=== PATIENT | male | born 1960 | race Caucasian/White ===

== ENCOUNTER 2022-01-11 13:04 | Observation (INO) ==
[2022-01-11 14:24] LABS: Hematocrit (blood only) 38.6 % (40.1-51.0); Hemoglobin 12.6 g/dl (14.0-18.0); Mean Corpuscular Hemoglobin 30.3 pg (25.0-34.0); Mean Corpuscular Hgb Conc 32.6 g/dL (32.0-36.0); Mean Corpuscular Volume 92.8 fL (80.0-100.0); Platelet Count 85 K/uL (130-400); RDW Coefficient of Variation 15.1 % (11.5-14.5); RDW Standard Deviation 51.3 fL (36.4-46.3); Red Blood Count 4.16 M/uL (4.63-6.08); White Blood Count 10.11 K/ul (4.8-10.8)
[2022-01-11 15:01] LABS: Alanine Aminotransferase 18 U/L (7-52); Albumin Globulin Ratio 1.2 (0.9-2); Albumin Level 3.8 gm/dl (3.4-5.0); Alkaline Phosphatase 79 U/L (34-104); Anion Gap 7 (3-11); BUN Creatinine Ratio 15.2 (10-20); Bilirubin,Total 1.2 mg/dl (0.2-1.0); Blood Urea Nitrogen 12 mg/dl (6-23); Calcium 9.4 mg/dl (8.5-10.1); Carbon Dioxide 25 mmol/L (21-32); Chloride 104 mmol/L (98-107); Creatinine Clr Calc Pharmacy 131.2 ml/min; Est GFR (African American) 113.9 ml/min; Est GFR (Non-African American) 98.3 ml/min; Globulin 3.3 gm/dl (2.5-4.0); Glucose 86 mg/dl (70-99(Fasting)); Lipase 31 U/L (11-82); Sodium 136 mmol/L (136-145); Total Protein 7.1 gm/dl (6.0-8.3)
[2022-01-11 15:39] LABS: Potassium 3.8 mmol/L (3.5-5.1)
[2022-01-11 15:49] LABS: Eosinophils % (manual) 1 %; Lymphocytes # (manual) 6.98 K/uL (1.2-3.4); Lymphocytes % (manual) 69 %; Monocytes % (manual) 2 %; Neutrophils % (manual) 3 %; Ovalocytes 1+; Reactive Lymphocytes # (manual) 2.63 K/uL; Reactive Lymphocytes % (manual) 26 %; Tear Drop Cells 1+
--- NOTE | 2022-01-11 16:49 | XRay Report ---
XR chest 1V portable CLINICAL HISTORY: abd pain. Evaluate lung bases. COMPARISON STUDY: No previous studies for comparison. TECHNIQUE: 1 view of the chest FINDINGS: Single frontal view of the chest demonstrates the cardiomediastinal silhouette to be within normal li mits. There is a decreased inspiratory effort with elevation of the hemidiaphragms and crowding of th e bronchovascular markings at the lung bases and centrally. The lungs are clear of alveolar opacities . There is no evidence for pleural effusion. There is no evidence for vascular congestion. There is n o acute osseous pathology. IMPRESSION: 1. There is a decreased inspiratory effort with otherwise no acute chest disease. ACT 112: Negative or not required by law. Electronically signed by: Aroldo Gooden M.D. 01/11/2022 4:47 PM
--- NOTE | 2022-01-11 17:51 | Ultrasound Report ---
ABDOMINAL ULTRASOUND, RIGHT UPPER QUADRANT HISTORY: Right upper quadrant abdominal pain.. COMPARISON: None. FINDINGS: Pancreas: The pancreatic tail is obscured by overlying bowel gas. The remaining portions of the pancr eas are within normal limits. Liver: Heterogeneous echotexture. No hepatic masses. 20.5 cm in length. Subtle nodular contour to the liver suggestive of early cirrhosis. Gallbladder: The gallbladder is contracted. Diffuse gallbladder wall thickening most pronounced along the hepatic surface measuring 8 mm. There is a small stone identified within the gallbladder. Negati ve sonographic Moya sign. CBD: 4 mm. Right kidney: No hydronephrosis. Miscellaneous: Multiple mildly enlarged periportal/peripancreatic lymph nodes measuring up to 2.9 x 2 .8 x 1.8 cm. IMPRESSION: 1. Enlarged and heterogeneous liver demonstrating a subtle nodular contour consistent with cirrhosis. No hepatic masses. 2. Multiple mildly enlarged periportal/peripancreatic lymph nodes. This is nonspecific but likely due to the patient's underlying cirrhosis. 6 month follow-up recommended to ensure stability. 3. Cholelithiasis. Diffuse gallbladder wall thickening is most likely due to the underlying hepatocel lular disease. ACT 112: Negative or not required by law. Electronically signed by: Arnaldo Crouch M.D. 01/11/2022 5:48 PM
[2022-01-11] MEDS ORDERED: OPTIRAY 320 125ml IV ONE (19:03)
--- NOTE | 2022-01-11 19:30 | CT Scan Report ---
CHEST CTA for PULMONARY ARTERIES CT DOSE: HISTORY: right rib/ruq pain TECHNIQUE: Multiaxial CT images of the chest were performed following the intravenous administration of contrast to evaluate the pulmonary arteries. Maximal intensity projection images were also obtaine d. A dose lowering technique was utilized adhering to the principles of ALARA. COMPARISON STUDY: None. FINDINGS: Normal caliber thoracic aorta with no evidence for dissection. The heart is normal in size. Trace right pleural effusion. No pericardial effusion. Normal esophagus. Suboptimal opacification of the pulmonary arterial tree due to the timing of contrast. However, no definite filling defects with in the pulmonary arteries to suggest a pulmonary embolus. No suspicious lytic or blastic osseous lesi ons. Old, healed right fourth and fifth rib fractures. No acute fractures identified within the chest . The central airways are patent. No pneumothorax. A 6 mm nodular density within the left lower lobe on image 145 appears to represent an impacted bronchus. No focal lung consolidations to suggest pneum onia. There is a 4 mm subpleural nodule within the right upper lobe on image 205. Hepatosplenomegaly is better appreciated on the same day abdomen and pelvis CTA. There is bilateral subpectoral/axillary lymphadenopathy. Dominant right axillary lymph node measures 3.2 cm. There is also mediastinal lymph adenopathy and a few mildly enlarged right anterior diaphragmatic lymph nodes. The bilateral hilar ly mph nodes are borderline enlarged. Upper abdominal lymphadenopathy is better appreciated on the same day abdomen and pelvis CT. IMPRESSION: 1. No evidence for pulmonary embolus. 2. Bilateral axillary, mediastinal, and upper abdominal lymphadenopathy. This is highly suspicious fo r underlying lymphoma. Oncology consultation recommended. 3. Subcentimeter pulmonary nodules as described above with the largest in the left lower lobe measuri ng 6 mm. [address] follow-up recommended to ensure stability. 4. Trace right pleural effusion. 5. Please refer to the same day abdomen and pelvis CT for further evaluation of the abdominal structu res. ACT 112: Negative or not required by law. Electronically signed by: Arnaldo Crouch M.D. 01/11/2022 7:28 PM
--- NOTE | 2022-01-11 19:36 | CT Scan Report ---
ABDOMEN AND PELVIS CT WITH IV CONTRAST CT DOSE: 1963.09 mGy.cm HISTORY: Right upper quadrant abdominal pain. TECHNIQUE: Multiaxial CT images of the abdomen and pelvis were performed following the use of intrave nous contrast. A dose lowering technique was utilized adhering to the principles of ALARA. COMPARISON STUDY: Abdominal ultrasound 01/11/2022. FINDINGS: Enlarged subcarinal lymph nodes are again noted. There is a trace right pleural effusion. N o pneumoperitoneum. No pneumatosis. No suspicious lytic or blastic osseous lesions. No acute fracture s identified. The liver measures 21 cm in length. The spleen measures 22 cm in length. Diffuse gallbl adder wall thickening/edema is noted. Subtle nodular contour to the liver which could represent early cirrhosis. The main portal vein is patent. The splenic vein is also patent. No hepatic or splenic ma sses. There is redemonstration of the periportal/peripancreatic lymphadenopathy. Dominant portacaval lymph node measures 4.2 x 2.4 cm. There is also mild gastrohepatic lymphadenopathy. The pancreas, adr enal glands, and kidneys are unremarkable. No hydronephrosis. Small fat-containing right inguinal her ashwin. There is bilateral iliac and mild inguinal lymphadenopathy. Dominant left external iliac lymph n ode measures 3.6 x 1.7 cm. The bladder is unremarkable. The prostate gland is normal in size. Mild ca lcified plaque within the normal caliber abdominal aorta. Colonic diverticulosis. No evidence for acu te diverticulitis. No bowel wall thickening or obstruction. IMPRESSION: 1. Abdominal and pelvic lymphadenopathy as described above. This is highly suspicious for a lymphopro liferative disorder. Oncology consultation recommended. 2. Hepatosplenomegaly. This may be due to the suspected lymphoproliferative disorder. 3. Subtle nodular contour to the liver which may represent early cirrhosis. 4. Diffuse gallbladder wall thickening/edema. This is nonspecific but could be due to the underlying hepatocellular disease. An acute cholecystitis could also have a similar appearance in the appropriat e clinical setting. 5. No bowel wall thickening or obstruction. 6. Additional findings as described above. ACT 112: Negative or not required by law. Electronically signed by: Arnaldo Crouch M.D. 01/11/2022 7:34 PM
[2022-01-11] MEDS ORDERED: PIPERACILLIN/TAZOBACTAM 3.375 GM in DEXTROSE 5% 100 ML/100 ML BAG IV STA (20:34)
--- NOTE | 2022-01-11 20:49 | Emergency Department Note ---
History of Present Illness General Chief complaint: Abdominal Pain Stated complaint: GALL BLADDER PAIN Time Seen by Provider: 01/11/22 14:11 Source: patient Mode of arrival: ambulatory Limitations: no limitations History of Present Illness Maximum Pain Intensity: 4 This patient is a 61-year-old male with past medical history of CLL who presents to the emergency department today for evaluation of right upper quadrant abdominal pain. Patient reports that he had a similar episode of pain 2 weeks ago which lasted for 3 or 4 days. He states that he saw his family physician, who diagnosed him with a "gallbladder attack." Patient was feeling okay since then until a few days ago. He states that he then developed right upper quadrant abdominal pain with radiation into the back and shoulder at times. Pain has been somewhat intermittent but sharp at times. He rates his discomfort a 4/10 at this time. He denies nausea/vomiting, fevers, shortness of breath or changes in bowel movements. He reports pain is with certain movements and does worsen with a very deep breath. Patient receives care at [facility] for his CLL. Patient does admit to daily alcohol use, states that he drinks "a couple three" beers daily. Home Medications Medication Instructions Recorded Confirmed Type amlodipine 5 mg tablet 5 mg PO DAILY 01/11/22 01/11/22 History hydrochlorothiazide 25 mg tablet 25 mg PO DAILY 01/11/22 01/11/22 History metoprolol succinate 25 mg 25 mg PO DAILY 01/11/22 01/11/22 History tablet,extended release 24 hr rosuvastatin 40 mg tablet 40 mg PO DAILY 01/11/22 01/11/22 History Allergies Allergy/AdvReac Type Severity Reaction Status Date / Time No Known Allergies Allergy Unverified 01/11/22 20:50 Past Med/Surg History Medical History (Updated 01/12/22 @ 17:02 by Reina Dumont PA-C) CLL (chronic lymphocytic leukemia) Social History Smoking Status: Current some day smoker Tobacco Type: Cigars Do You Dip or Chew Tobacco: No; Hx Alcohol Use: Yes Alcohol type: beer Hx Substance Use: No Preferred Language: [place]ian Communication Ability: Effective Cma Required: No Beliefs That Will Affect Care: None marital status: Current Living Situation: Spouse and Family Current Living Situation Comment: and daughter Other Information That Helps Us Care for You: No Feels Safe at Home: Yes Safety Concerns: Feels Safe At This Time Assistive Devices: None Review of Systems A total of 10 systems reviewed and were otherwise negative Physical Exam Vital Signs Vital Signs - 24 hr 01/11/22 19:00 01/11/22 21:00 Pulse Rate [Right Finger] 98 H 69 Respiratory Rate 17 18 Respiratory Depth Normal Blood Pressure [Right Arm] 161/93 H 128/78 Blood Pressure Mean [Right Arm] 115 94 Pulse Oximetry 98 98 Oxygen Delivery Method Room Air VITALS: Vitals are noted on the nurse's note and reviewed by myself. GENERAL: This is a 61-year-old male, in no acute distress, well-developed well- nourished. SKIN: The skin was without rashes. EARS: External auditory canals clear, tympanic membranes pearly lucas without erythema or effusion bilaterally. EYES: Pupils equal round and reactive to light and accommodation. No scleral icterus. MOUTH: Mucous membranes moist. NECK: Supple without nuchal rigidity. No lymphadenopathy. HEART: Regular rate and rhythm without murmurs gallops or rubs. LUNGS: Clear to auscultation bilaterally without wheezes, rales or rhonchi. ABDOMEN: Positive bowel sounds x 4. Soft, mild tenderness to palpation in the RUQ. No guarding or rebound tenderness. NEURO: Patient was alert and oriented to person place and time. Course Administered Medications Amlodipine Besylate (Amlodipine Besylate 5 Mg Tab) 5 mg PO DAILY LIDA Stop: 02/11/22 08:59 Last Admin: 01/12/22 07:43 Dose: 5 mg Documented By: JINA Hydrochlorothiazide (Hydrochlorothiazide 25 Mg Tab) 25 mg PO DAILY LIDA Stop: 02/11/22 08:59 Last Admin: 01/12/22 07:44 Dose: 25 mg Documented By: JINA Metoprolol Succinate (Metoprolol Succ 25mg Ext Rel Tab) 25 mg PO DAILY LIDA Stop: 02/11/22 08:59 Last Admin: 01/12/22 07:44 Dose: 25 mg Documented By: JINA Discontinued Medications Piperacillin Sod/Tazobactam (Sod 3.375 gm/ Dextrose) 100 ml in 115 mls @ 230 mls/hr IV NOW STA Stop: 01/11/22 21:03 Last Infusion: 01/11/22 22:42 Dose: 0 mls/hr Documented By: Admin: 01/11/22 21:18 Dose: 230 mls/hr Documented By: ELSY Dextrose/Sodium Chloride (D5w And 1/2nss) 1,000 mls @ 125 mls/hr IV .Q8H LIDA Stop: 02/10/22 22:22 Last Infusion: 01/12/22 14:15 Dose: 0 mls/hr Documented By: Admin: 01/12/22 06:58 Dose: 125 mls/hr Documented By: Infusion: 01/12/22 06:58 Dose: 125 mls/hr Documented By: Admin: 01/11/22 23:00 Dose: 125 mls/hr Documented By: LEYDI Piperacillin Sod/Tazobactam (Sod 3.375 gm/ Dextrose) 115 mls @ 28.75 mls/hr IV Q8H LIDA; Protocol Stop: 01/22/22 01:59 Last Infusion: 01/12/22 12:50 Dose: 0 mls/hr Documented By: Admin: 01/12/22 08:53 Dose: 28.8 mls/hr Documented By: Infusion: 01/12/22 06:03 Dose: 0 mls/hr Documented By: Admin: 01/12/22 02:03 Dose: 28.8 mls/hr Documented By: LEYDI Ioversol (Optiray 320 125ml) 120 ml IV ONCE ONE Stop: 01/11/22 19:04 Last Admin: 01/11/22 19:08 Dose: 120 ml Documented By: [facility] Medical Decision Making Differential Diagnosis Appendicitis, testicular torsion, infections, diverticulitis, UTI, obstruction, mesenteric ischemia, aortic pathology, inflammatory bowel disease, renal colic, PUD, pancreatitis, biliary pathology, hernia, volvulus, constipation, as well as other pathologies. Home Medications Current Medication List: was personally reviewed by me Laboratory Data Attestation: I reviewed the patient's lab results. Result diagrams: 01/12/22 05:17 01/12/22 05:17 Lab Results 01/11/22 01/11/22 01/11/22 Range/Units 13:56 13:56 15:06 WBC 10.11 (4.8-10.8) K/ul RBC 4.16 L (4.63-6.08) M/uL Hgb 12.6 L (14.0-18.0) g/dl Hct 38.6 L (40.1-51.0) % MCV 92.8 (80.0-100.0) fL MCH 30.3 (25.0-34.0) pg MCHC 32.6 (32.0-36.0) g/dL RDW Std Deviation 51.3 H (36.4-46.3) fL RDW Coeff of Manuel 15.1 H (11.5-14.5) % Plt Count 85 L (130-400) K/uL MPV 10.0 (9.4-12.4) fL Neutrophils % (Manual) 3 % Lymphocytes % (Manual) 69 % Reactive Lymphs % (Man) 26 % Monocytes % (Manual) 2 % Eosinophils % (Manual) 1 % Neutrophils # (Manual) 0.30 L (1.4-6.5) K/uL Total Absolute Neuts 0.30 L* (1.4-6.5) K/uL Lymphocytes # (Manual) 6.98 H (1.2-3.4) K/uL Reactive Lymphs # 2.63 K/uL Total Abs Lymphocytes 9.60 H (1.2-3.4) K/uL Monocytes # (Manual) 0.20 L (0.24-0.82) K/uL Eosinophils # (Manual) 0.10 (0-0.50) K/uL Blood Smear Review Tear Drop Cells 1+ Ovalocytes 1+ Sodium 136 (136-145) mmol/L Potassium TNP 3.8 Chloride 104 (98-107) mmol/L Carbon Dioxide 25 (21-32) mmol/L Anion Gap 7 (3-11) BUN 12 (6-23) mg/dl Creatinine 0.79 (0.6-1.4) mg/dl Est Cr Clr Drug Dosing 131.2 ml/min Est GFR ( Amer) 113.9 ml/min Est GFR (Non-Af Amer) 98.3 ml/min BUN/Creatinine Ratio 15.2 (10-20) Glucose 86 (70-99(Fasting)) mg/dl Calcium 9.4 (8.5-10.1) mg/dl Total Bilirubin 1.2 H (0.2-1.0) mg/dl AST TNP 33 ALT 18 (7-52) U/L Alkaline Phosphatase 79 (34-104) U/L Total Protein 7.1 (6.0-8.3) gm/dl Albumin 3.8 (3.4-5.0) gm/dl Globulin 3.3 (2.5-4.0) gm/dl Albumin/Globulin Ratio 1.2 (0.9-2) Lipase 31 (11-82) U/L SARS-CoV-2, RNA, NAAT (NEGATIVE) 01/11/22 Range/Units 20:19 WBC (4.8-10.8) K/ul RBC (4.63-6.08) M/uL Hgb (14.0-18.0) g/dl Hct (40.1-51.0) % MCV (80.0-100.0) fL MCH (25.0-34.0) pg MCHC (32.0-36.0) g/dL RDW Std Deviation (36.4-46.3) fL RDW Coeff of Manuel (11.5-14.5) % Plt Count (130-400) K/uL MPV (9.4-12.4) fL Neutrophils % (Manual) % Lymphocytes % (Manual) % Reactive Lymphs % (Man) % Monocytes % (Manual) % Eosinophils % (Manual) % Neutrophils # (Manual) (1.4-6.5) K/uL Total Absolute Neuts (1.4-6.5) K/uL Lymphocytes # (Manual) (1.2-3.4) K/uL Reactive Lymphs # K/uL Total Abs Lymphocytes (1.2-3.4) K/uL Monocytes # (Manual) (0.24-0.82) K/uL Eosinophils # (Manual) (0-0.50) K/uL Blood Smear Review Tear Drop Cells Ovalocytes Sodium (136-145) mmol/L Potassium Chloride (98-107) mmol/L Carbon Dioxide (21-32) mmol/L Anion Gap (3-11) BUN (6-23) mg/dl Creatinine (0.6-1.4) mg/dl Est Cr Clr Drug Dosing ml/min Est GFR ( Amer) ml/min Est GFR (Non-Af Amer) ml/min BUN/Creatinine Ratio (10-20) Glucose (70-99(Fasting)) mg/dl Calcium (8.5-10.1) mg/dl Total Bilirubin (0.2-1.0) mg/dl AST ALT (7-52) U/L Alkaline Phosphatase (34-104) U/L Total Protein (6.0-8.3) gm/dl Albumin (3.4-5.0) gm/dl Globulin (2.5-4.0) gm/dl Albumin/Globulin Ratio (0.9-2) Lipase (11-82) U/L SARS-CoV-2, RNA, NAAT NEGATIVE (NEGATIVE) Imaging Data Attestation: I personally reviewed and interpreted this imaging study as follows: Radiologist's Impression: Gallbladder Ultrasound 01/11/22 14:33 ABDOMINAL ULTRASOUND, RIGHT UPPER QUADRANT HISTORY: Right upper quadrant abdominal pain.. COMPARISON: None. FINDINGS: Pancreas: The pancreatic tail is obscured by overlying bowel gas. The remaining portions of the pancreas are within normal limits. Liver: Heterogeneous echotexture. No hepatic masses. 20.5 cm in length. Subtle nodular contour to the liver suggestive of early cirrhosis. Gallbladder: The gallbladder is contracted. Diffuse gallbladder wall thickening most pronounced along the hepatic surface measuring 8 mm. There is a small stone identified within the gallbladder. Negative sonographic Moya sign. CBD: 4 mm. Right kidney: No hydronephrosis. Miscellaneous: Multiple mildly enlarged periportal/peripancreatic lymph nodes measuring up to 2.9 x 2.8 x 1.8 cm. IMPRESSION: 1. Enlarged and heterogeneous liver demonstrating a subtle nodular contour consistent with cirrhosis. No hepatic masses. 2. Multiple mildly enlarged periportal/peripancreatic lymph nodes. This is nonspecific but likely due to the patient's underlying cirrhosis. 6 month follow-up recommended to ensure stability. 3. Cholelithiasis. Diffuse gallbladder wall thickening is most likely due to the underlying hepatocellular disease. ACT 112: Negative or not required by law. Electronically signed by: Arnaldo Crouch M.D. 01/11/2022 5:48 PM Chest X-Ray 01/11/22 16:33 XR chest 1V portable CLINICAL HISTORY: abd pain. Evaluate lung bases. COMPARISON STUDY: No previous studies for comparison. TECHNIQUE: 1 view of the chest FINDINGS: Single frontal view of the chest demonstrates the cardiomediastinal silhouette to be within normal limits. There is a decreased inspiratory effort with elevation of the hemidiaphragms and crowding of the bronchovascular markings at the lung bases and centrally. The lungs are clear of alveolar opacities. There is no evidence for pleural effusion. There is no evidence for vascular congestion. There is no acute osseous pathology. IMPRESSION: 1. There is a decreased inspiratory effort with otherwise no acute chest disease. ACT 112: Negative or not required by law. Electronically signed by: Aroldo Gooden M.D. 01/11/2022 4:47 PM Abdomen/Pelvis CT 01/11/22 18:[address] WITH IV CONTRAST CT DOSE: 1963.09 mGy.cm HISTORY: Right upper quadrant abdominal pain. TECHNIQUE: Multiaxial CT images of the abdomen and pelvis were performed foll owing the use of intravenous contrast. A dose lowering technique was utilized adhering to the principles of ALARA. COMPARISON STUDY: Abdominal ultrasound 01/11/2022. FINDINGS: Enlarged subcarinal lymph nodes are again noted. There is a trace right pleural effusion. No pneumoperitoneum. No pneumatosis. No suspicious lytic or blastic osseous lesions. No acute fractures identified. The liver measures 21 cm in length. The spleen measures 22 cm in length. Diffuse gallbladder wall thickening/edema is noted. Subtle nodular contour to the liver which could represent early cirrhosis. The main portal vein is patent. The splenic vein is also patent. No hepatic or splenic masses. There is redemonstration of the periportal/peripancreatic lymphadenopathy. Dominant portacaval lymph node measures 4.2 x 2.4 cm. There is also mild gastrohepatic lymphadenopathy. The pancreas, adrenal glands, and kidneys are unremarkable. No hydronephrosis. Small fat-containing right inguinal hernia. There is bilateral iliac and mild inguinal lymphadenopathy. Dominant left external iliac lymph node measures 3.6 x 1.7 cm. The bladder is unremarkable. The prostate gland is normal in size. Mild calcified plaque within the normal caliber abdominal aorta. Colonic divert iculosis. No evidence for acute diverticulitis. No bowel wall thickening or obstruction. IMPRESSION: 1. Abdominal and pelvic lymphadenopathy as described above. This is highly suspicious for a lymphoproliferative disorder. Oncology consultation re commended. 2. Hepatosplenomegaly. This may be due to the suspected lymphoproliferative d isorder. 3. Subtle nodular contour to the liver which may represent early cirrhosis. 4. Diffuse gallbladder wall thickening/edema. This is nonspecific but could be due to the underlying hepatocellular disease. An acute cholecystitis could also have a similar appearance in the appropriate clinical setting. 5. No bowel wall thickening or obstruction. 6. Additional findings as described above. ACT 112: Negative or not required by law. Electronically signed by: Arnaldo Crouch M.D. 01/11/2022 7:34 PM Chest CTA 01/11/22 18:41 CHEST CTA for PULMONARY ARTERIES CT DOSE: HISTORY: right rib/ruq pain TECHNIQUE: Multiaxial CT images of the chest were performed following the intravenous administration of contrast to evaluate the pulmonary arteries. Maximal intensity projection images were also obtained. A dose lowering technique was utilized adhering to the principles of ALARA. COMPARISON STUDY: None. FINDINGS: Normal caliber thoracic aorta with no evidence for dissection. The heart is normal in size. Trace right pleural effusion. No pericardial effusion. Normal esophagus. Suboptimal opacification of the pulmonary arterial tree due to the timing of contrast. However, no definite filling defects within the pulmonary arteries to suggest a pulmonary embolus. No suspicious lytic or blastic osseous lesions. Old, healed right fourth and fifth rib fractures. No acute fractures identified within the chest. The central airways are patent. No pneumothorax. A 6 mm nodular density within the left lower lobe on image 145 appears to represent an impacted bronchus. No focal lung consolidations to suggest pneumonia. There is a 4 mm subpleural nodule within the right upper lobe on image 205. Hepatosplenomegaly is better appreciated on the same day abdomen and pelvis CTA. There is bilateral subpectoral/axillary lymphadenopathy. Dominant right axillary lymph node measures 3.2 cm. There is also mediastinal lymphadenopathy and a few mildly enlarged right anterior diaphragmatic lymph nodes. The bilateral hilar lymph nodes are borderline enlarged. Upper abdominal lymphadenopathy is better appreciated on the same day abdomen and pelvis CT. IMPRESSION: 1. No evidence for pulmonary embolus. 2. Bilateral axillary, mediastinal, and upper abdominal lymphadenopathy. This is highly suspicious for underlying lymphoma. Oncology consultation recommended. 3. Subcentimeter pulmonary nodules as described above with the largest in the left lower lobe measuring 6 mm. [address] follow-up recommended to ensure stability. 4. Trace right pleural effusion. 5. Please refer to the same day abdomen and pelvis CT for further evaluation of the abdominal structures. ACT 112: Negative or not required by law. Electronically signed by: Arnaldo Crouch M.D. 01/11/2022 7:28 PM MDM Narrative The patient is a 61-year-old male who presents today complaining of abdominal pain. Labs revealed neutropenia, anemia, and thrombocytopenia. Recent labs were reviewed on the patient's cell phone - these appear to be baseline due to the patient's CLL. Bilirubin is slightly elevated, remainder of LFT's within normal limits. RUQ ultrasound showed evidence of cirrhosis. CT scan of the chest and abdomen/pelvis performed which did show diffuse lymphadenopathy, which may be a chronic finding for the patient, however there are no prior studies for comparison. There was noted to be gallbladder wall thickening/edema. Given patient's episodes of pain I do feel he would benefit from further evaluation in the hospital with further work-up to rule out an acute cholecystitis. Case was discussed with the general surgery team, who recommended hospitalist admission. Case was discussed with the [facility] hospitalist who agreed to evaluate patient for further care. Patient was given 1 dose of Zosyn in the ER. Impression & Plan Right upper quadrant abdominal pain Discharge Plan Visit Data Chief Complaint: Abdominal Pain Stated Complaint: GALL BLADDER PAIN ED Provider: Carlitos Ly ED Midlevel Provider: Reina Dumont Discharge Problem: Right upper quadrant abdominal pain Patient Disposition: Admitted As Inpatient Discharge Instructions Interventions: ED Discharge Assessment Last Done: 01/11/22 22:08
--- NOTE | 2022-01-11 21:45 | Surgery Consultation ---
Date of Consultation January 11, 2022 Assessment & Plan (1) Abdominal pain: I discussed with the treating clinician emergency department and they are planning on having the hospitalist admit the patient to the hospital. Is unclear if the patient's abdominal pain is related to underlying gallbladder disease but at the present time the patient does not have cholecystitis noted on imaging. There is underlying concern the patient may have an underlying hepatocellular disorder causing his pain. We recommend proceeding as follows: Provide analgesicsprovide antiemetics Provide IV hydration Antibiotics have been initiated in the form of Zosyn which may continue N.p.o. status has been implemented As it is unclear if the patient has cholecystitis we will follow serial exams and serial labs and determination will be made if patient warrants any additional testing for this problem. Remainder of plan as directed by the primary service Supervising Physician Co-Signing Physician Notes I personally saw and evaluated the patient with Prince Nogueira PA-C and agree with the assessment and plan. 61-year-old male with history of CLL, untreated and cholelithiasis as well as hepatocellular disease of unknown origin CT and ultrasound images and results personally viewed by me Is thickened gallbladder wall is most likely due to his hepatocellular disease and clinically his picture does not fit with acute cholecystitis The patient is being admitted to the medical service for further work-up We will order a HIDA scan to help further clarify, sometimes this will come back positive due to his hepatocellular disease but I think it is worth it in this patient to see if he needs intervention We will continue to follow along and follow-up the HIDA results History of Present Illness Reason for Consultation: Abdominal pain, concern for cholecystitis History of Present Illness This is a 61-year-old male who presented to the [facility] emergency department secondary to abdominal pain. The patient notes that the pain is located in the right upper quadrant and comes and goes. He says it first began approximately 2 weeks ago and he believes is unrelated to meals. He does note a decreased appetite because of the pain and has not exhibited any nausea or vomiting. He has been running low-grade fevers with a maximum temperature he noted was 100.9. He notes that the pain does radiate radiate to his right shoulder. Not report any additional modifying factors. He reports a previous abdominal surgeries in the form of a left inguinal herniorrhaphy. Patient also does report a history of CLL. Notes he follows with Dr. Yepez, an oncologist in the [facility]. He reports that he has not received any past or present treatments for this condition. Today in the emergency department the patient did have labs and imaging which independent reviewed. A gallbladder ultrasound revealed a contracted gallbladder with diffuse gallbladder wall thickening which was most pronounced along the hepatic surface. There is a small gallstone identified within the gallbladder. Moya sign was noted to be negative. Multiple enlarged periportal and peripancreatic lymph nodes. Terpening radiologist felt that the gallbladder findings were likely due to underlying hepatocellular disease. A CT scan of the abdomen pelvis was performed that showed abdominal and pelvic lymph lymphadenopathy. Hepatosplenomegaly was noted long with some evidence of hepatic cirrhosis. There is diffuse gallbladder wall thickening and and edema that was felt to be potentially due to underlying hepatocellular disease. Chest x-ray showed no evidence of pneumonia. A CT scan of the chest showed no evidence of pulmonary emboli. The patient was noted to have bilateral axillary, mediastinal, and upper abdominal adenopathy. Patient was also noted to have a 6 mm nodular density in the left lower lobe of his lung and a 4 mm subpleural nodule in the right upper lobe. Labs include a CBC her white blood cell count was normal. Hemoglobin and hematocrit were 12.6 and 38.6. His platelet count was 85,000. His total absolute neutrophil count was low at 0.3. Kendal profile showed sodium, potassium, BUN, and creatinine were normal. There is a slight elevation of his bilirubin at 1.2 but the remaining LFTs including transaminases and alkaline phosphatase were nonelevated. Lipase was nonelevated. A COVID test was negative. Concerning additional medical problems the patient has a history of hypertension As noted the patient has had a left inguinal hernia Family history could not be obtained as the patient is adopted The patient does report smoking cigars At the time of my interview the patient was in no distress and was resting comfortably in a bedside chair. Allergies Allergy/AdvReac Type Severity Reaction Status Date / Time No Known Allergies Allergy Unverified 01/11/22 20:50 Home Medications Medication Instructions Recorded Confirmed Type amlodipine 5 mg tablet 5 mg PO DAILY 01/11/22 01/11/22 History hydrochlorothiazide 25 mg tablet 25 mg PO DAILY 01/11/22 01/11/22 History metoprolol succinate 25 mg 25 mg PO DAILY 01/11/22 01/11/22 History tablet,extended release 24 hr rosuvastatin 40 mg tablet 40 mg PO DAILY 01/11/22 01/11/22 History Patient History Social History Smoking Status: Current some day smoker Tobacco Type: Cigars Do You Dip or Chew Tobacco: No; Hx Alcohol Use: Yes Alcohol type: beer Hx Substance Use: No Preferred Language: Mohawk Communication Ability: Effective [employer] Required: No Beliefs That Will Affect Care: None Current Living Situation: Spouse and Family Current Living Situation Comment: and daughter Other Information That Helps Us Care for You: No Feels Safe at Home: Yes Safety Concerns: Feels Safe At This Time Assistive Devices: Glasses Review of Systems Constitutional: + fever Eyes: no eye pain Ear, Nose, Mouth, Throat: no ear pain Respiratory: no cough and no dyspnea Cardiovascular: no chest pain Gastrointestinal: + abdominal pain; no nausea and no vomiting Genitourinary: no dysuria Musculoskeletal: no back pain Integumentary: no rash Neurologic: no localized weakness Physical Exam Constitutional: WD/WN, vitals as above Eyes: no conjunctival abnormality ENMT: Ears: no hearing impairment Mouth: no oropharynx abnormality Neck: trachea midline Respiratory: normal respiratory effort; no respiratory distress and no labored breathing Cardiovascular: Rate/Rhythm: regular rate and regular rhythm Gastrointestinal (Abdomen): Abdomen is soft, nondistended, nonrigid. Bowel sounds are present. There is no rebound tenderness or guarding. Patient did have pain with palpation in the right upper quadrant. Musculoskeletal: No calf tenderness. 1+ bilateral lower extremity edema is noted. Skin: no rashes Neurologic: moves all extremities Psychiatric: A+Ox3, euthymic affect Lymphatic: I was unable to palpate any axillary adenopathy. Results & Data ([facility]) Vital Signs (Past 12 Hours) Vital Signs Temp Pulse Pulse Resp BP BP Pulse Ox 01/11/22 21:00 69 18 128/78 98 01/11/22 19:00 98 H 17 161/93 H 98 01/11/22 17:00 76 16 97 01/11/22 15:00 78 18 132/78 94 01/11/22 14:37 80 18 141/79 H 94 01/11/22 13:05 37.0 C 88 18 135/89 96 O2 Del Method 01/11/22 21:00 01/11/22 19:00 Room Air 07/13/22 17:00 Room Air 01/11/22 15:00 Room Air 01/11/22 14:37 Room Air 01/11/22 13:05 PG Care Time/CCT Total # of Minutes Spent Total Time Spent with Patient: Total time spent is greater than 50% in coordination of care (as documented) at patient's floor/unit and/or counseling patient: Coding Level of Care Code 20466 Inpt Consult Level 5 Diagnoses Abdominal pain R10.9
[2022-01-11] MEDS ORDERED: ONDANSETRON INJ 2 MG/ML 2 ML VIAL IV PRN (22:23)
[2022-01-11] MEDS ORDERED: POLYETHYLENE (MIRALAX) 17 GM PACK PO PRN (22:23)
[2022-01-11] MEDS ORDERED: ACETAMINOPHEN 325 MG TAB PO PRN (22:23)
[2022-01-11] MEDS ORDERED: MoRPHine SULFATE 4 MG/ML 1 ML CARP\\VIAL IV PRN (22:23)
[2022-01-11] MEDS: D5W AND 1/2NSS 1,000 ML IV SCH (23:00)
--- NOTE | 2022-01-12 01:14 | History and Physical Report ---
DATE OF ADMISSION: 01/11/2022. CHIEF COMPLAINT: Abdominal pain. HISTORY OF PRESENT ILLNESS: This is a 61-year-old male with past medical history significant for CLL, as per the patient currently under observation, follows with [facility] oncology at [place]; history of hypertension; hyperlipidemia, who presents with abdominal pain. The patient states he had an attack of right abdominal pain about 2 weeks ago and again 2 days ago, he is again having the similar pain. Since then, his appetite is down, not eating. The pain is radiating to back and he could not take deep breaths because of pain, not able to move much because of pain. No nausea, no vomiting, no diarrhea or constipation. Normal bladder movements. No chest pain. Could not take deep breaths because of pain. No headache, no blurred vision, no earache, no runny nose, no sore throat, no cough. He says his lymph nodes get enlarged whenever he gets infection because of his CLL. Currently, resting comfortably and hemodynamically stable. ALLERGIES: No known drug allergies. PAST MEDICAL HISTORY: As mentioned above. PAST SURGICAL HISTORY: Tonsillectomy, sinus surgery. CURRENT MEDICATIONS: The patient is on amlodipine 5 mg p.o. daily, hydrochlorothiazide 25 mg p.o. daily, metoprolol succinate 25 mg p.o. daily, atorvastatin 40 mg p.o. daily. FAMILY HISTORY: The patient is adopted. SOCIAL HISTORY: The patient smokes few cigars a week. Social drinking. Denies any drug use. REVIEW OF SYSTEMS: As per HPI. Rest of the review of systems is negative. PHYSICAL EXAMINATION: GENERAL: The patient is obese, not in acute distress. VITAL SIGNS: Temperature 37, pulse 69, respiratory rate 18, blood pressure 128/78, oxygen 98% on room air. HEENT: Pupils equal, round, and reactive to light. Oral mucosa moist. NECK: No JVD seen. Supple. CARDIOVASCULAR: S1 and S2 heard. Regular rate and rhythm. No murmur, no gallop. RESPIRATORY SYSTEM: Normal AP diameter. No accessory muscle use. No wheezing, no crackles. ABDOMEN: Soft, bowel sounds present. Right upper quadrant tenderness present. Mild guarding. No rigidity. No distention. CENTRAL NERVOUS SYSTEM: Cranial nerves II through XII are grossly intact, nonfocal. EXTREMITIES: No edema, no erythema. LABORATORY DATA: WBC 10, hemoglobin 12.6, hematocrit 38.6, platelets 85. Sodium 136, potassium 3.8, chloride 104, bicarbonate 25, BUN 12, creatinine 0.7, serum glucose 86, calcium 9.4, total bilirubin 1.2, AST 33, ALT 18, alkaline phosphatase 79, lipase 31. SARS-CoV-2 rapid test negative. IMAGING DATA: CTA of the chest, no evidence for pulmonary embolus, bilateral axillary, mediastinal and upper abdominal lymphadenopathy, this is highly suspicious for underlying lymphoma. Subcentimeter pulmonary nodules as described above with largest in the left lower lobe measuring 6 mm. A six-month CT chest followup recommended to ensure stability. Trace right pleural effusion. CT of abdomen and pelvis with IV contrast, abdominopelvic lymphadenopathy, highly suspicious for lymphoproliferative disorder, hepatosplenomegaly, possible cirrhosis. Diffuse gallbladder wall thickening and edema, this is nonspecific, but due to underlying hepatocellular disease and acute cholecystitis could also have this appearance in appropriate clinical setting. Chest x-ray, no acute disease. Gallbladder ultrasound, enlarged heterogenous liver demonstrating subtle nodular contour consistent with cirrhosis. No hepatic masses. Multiple mildly enlarged periportal, peripancreatic lymph nodes, this is nonspecific, but likely due to the patient's underlying cirrhosis, cholelithiasis, diffuse gallbladder wall thickening, most likely due to the underlying hepatocellular disease. ASSESSMENT AND PLAN: This is a 61-year-old male who presents with right upper abdominal pain. 1. Right upper abdominal pain: Questionable gallbladder disease. ER discussed with surgery and recommended HIDA scan, will follow the HIDA scan. Keep him n.p.o. ER started on Zosyn, which will be continued. IV fluids, IV pain meds p.r.n. Consult general surgery. Monitor in the medical floor. 2. History of CLL: Follows with oncology at [place].Needs follow up on the imaging studies. 3. History of hypertension: Continue amlodipine, hydrochlorothiazide, metoprolol. Will follow the blood pressures. 4. Hyperlipidemia: Hold statin for now. 5. Thrombocytopenia: Possibly from his CLL. Needs followup. 6. Deep venous thrombosis prophylaxis: Sequential compression devices. DISPOSITION: Closely monitor in the med/surg. Expect to discharge home and follow with family doctor. Level 1 full code. Job ID: [id number] [facility]
[2022-01-12] MEDS: PIPERACILLIN/TAZOBACTAM 3.375 GM in DEXTROSE 5% 100 ML IV SCH ×2 (02:03→08:53)
[2022-01-12 05:40] LABS: Hematocrit (blood only) 34.1 % (40.1-51.0); Hemoglobin 11.2 g/dl (14.0-18.0); Mean Corpuscular Hemoglobin 30.1 pg (25.0-34.0); Mean Corpuscular Hgb Conc 32.8 g/dL (32.0-36.0); Mean Corpuscular Volume 91.7 fL (80.0-100.0); Mean Platelet Volume 9.9 fL (9.4-12.4); Platelet Count 67 K/uL (130-400); RDW Coefficient of Variation 15.1 % (11.5-14.5); RDW Standard Deviation 50.3 fL (36.4-46.3); Red Blood Count 3.72 M/uL (4.63-6.08); White Blood Count 7.09 K/ul (4.8-10.8)
[2022-01-12 06:06] LABS: Albumin Level 3.4 gm/dl (3.4-5.0); BUN Creatinine Ratio 14.3 (10-20); Bilirubin Direct 0.4 mg/dl (0-0.2); Bilirubin,Total 1.4 mg/dl (0.2-1.0); Calcium 8.4 mg/dl (8.5-10.1); Creatinine Clr Calc Pharmacy 131.1 ml/min; Est GFR (African American) 111.1 ml/min; Est GFR (Non-African American) 95.8 ml/min; Magnesium 1.7 mg/dl (1.7-2.4); Potassium 3.8 mmol/L (3.5-5.1); Total Protein 6.4 gm/dl (6.0-8.3)
[2022-01-12] MEDS: D5W AND 1/2NSS 1,000 ML IV SCH (06:58)
[2022-01-12 07:24] LABS: Basophils # (auto) 0.01 K/uL (0-0.2); Basophils % (auto) 0.1 %; Eosinophils # (auto) 0.02 K/uL (0-0.50); Eosinophils % (auto) 0.3 %; Immature Granulocytes # (auto) 0.01 K/uL (0.00-0.02); Immature Granulocytes % (auto) 0.1 %; Lymphocytes % (auto) 87.4 %; Monocytes # (auto) 0.17 K/uL (0.24-0.82); Monocytes % (auto) 2.4 %; Neutrophils # (auto) 0.68 K/uL (1.4-6.5); Neutrophils % (auto) 9.7 %; Smudge Cells Present; Tear Drop Cells 1+
[2022-01-12 07:35] LABS: Appearance Urine Cloudy (Clear); Bacteria Urine Automated Negative (Negative); Bilirubin Urine Negative (Negative); Blood Urine Negative (Negative); Cast Urine Automated 0 /lpf (0-5); Color Urine Dark Yellow; Glucose Urine UA Negative (Negative); Ketones Urine Trace (Negative); Leukocyte Esterase Urine Negative (Negative); Nitrite Urine Negative (Negative); Protein Urine Trace (Negative); Specific Gravity Urine > 1.045 (1.000-1.030); Urobilinogen Urine Negative (Negative)
--- NOTE | 2022-01-12 08:36 | Surgery Progress Note ---
Date of Service January 12, 2022 Assessment & Plan (1) Abdominal pain: Plan: Patientw/ history of CLL here with abdominal pain Imaging with CT and RUQ revealed findings of cirrhosis and underlying hepatocellular disease. + stones Today labs show WBC 7, Tb:1.4, Db: 0.4, other LFTs unremarkable Not totally convinced patient has cholecystitis Will order HIDA scan in the interim for further evaluation Admission and Anticipated Discharge Date Admission Date: January 11, 2022 Supervising Physician Co-Signing Physician Notes I personally saw and evaluated the patient with Prince Nogueira PA-C and agree with the assessment and plan. 61-year-old male with history of CLL, untreated and cholelithiasis as well as hepatocellular disease of unknown origin He continues with some abdominal pain, will await HIDA results for further treatment plan Subjective Patient feeling a little bit better, but does have some lingering abdominal pain. When asked if he knows about the findings of cirrhosis on imaging he mentions he drinks a couple beers a day and rarely hard liquor. Says his pain has started ~2 wks ago. Physical Exam Physical Exam: awake/alert, no distress Gastrointestinal (Abdomen): Percussion/Palpation: + abdomen tender (ttp in ruq) and abdomen soft Results & Data ([facility]) Vital Signs (Past 12 Hours) Vital Signs Temp Pulse Resp BP Pulse Ox O2 Del Method 01/12/22 05:36 37.6 C H 87 18 132/76 93 Room Air 01/11/22 22:15 36.9 C 92 H 18 145/87 H 92 Room Air 01/11/22 21:00 69 18 128/78 98 PG Care Time/CCT Total # of Minutes Spent Total Time Spent with Patient: Total time spent is greater than 50% in coordination of care (as documented) at patient's floor/unit and/or counseling patient: Coding Level of Care Code 74815 Subseq Hosp Care Lvl 1 Diagnoses Abdominal pain R10.9
[2022-01-12] MEDS ORDERED: hydroCHLOROthiazide 25 MG TAB PO SCH (09:00)
[2022-01-12] MEDS ORDERED: METOPROLOL SUCC 25MG EXT REL TAB PO SCH (09:00)
[2022-01-12] MEDS ORDERED: amLODIPine BESYLATE 5 MG TAB PO SCH (09:00)
--- NOTE | 2022-01-12 09:10 | Hospitalist Progress Note ---
Date of Service January 12, 2022 Assessment & Plan (1) CLL (chronic lymphocytic leukemia): (2) Abdominal pain: Plan: This is a 61-year-old male with PMH of for CLL, as per the patient currently under observation, follows with [facility] oncology at [place]; history of hyper tension; hyperlipidemia, who presents with abdominal pain. RUQ pain Intermittent right upper quadrant pain with event last week and then again 2 days ago with associated decreased appetite General surgery consulted - HIDA scan with no evidence for cystic duct obstruction. Low normal ejection fraction. Okay to resume diet, no indication for continued IV antibiotics Monitor overnight after discontinuation of antibiotics History of CLL Lymphadenopathy on imaging Follows with Dr. Yepez of [facility] in [place], under surveillance CTA chest and CT abd/pelvis with extensive lymphadenopathy that is highly suspicious for a lymphoproliferative disorder Will discuss with oncology provider; has a follow up in clinic in 1 month but will need to be seen sooner Iron studies, B12, direct tj, folate, haptoglobin studies pending to evaluate for hemolysis Will forward imaging studies to oncologist Admission and Anticipated Discharge Date Admission Date: January 11, 2022 Supervising Physician Co-Signing Physician Notes 61-year-old gentleman with PMH of CLL diagnosed 7 years ago under observation, follows oncology at [place], HTN, HLD presented 01/11 to our ED with complaint of abdominal pain. Of note, patient had similar abdominal pain around 2 weeks ago which resolved on its own. Patient's also mentions that patient has been having low-grade fever with sweats lately and his left submandibular lymph node enlargement was fairly rapid in the last 2 days [employer]. He is also having some skin rashes in the form of hives/no itching/no signs of infection noted. Admitting imagings: GB US: Enlarged/heterogeneous liver consistent with cirrhosis. 6-month follow-up recommended. Periportal/peripancreatic LAD. Cholelithiasis and diffuse GB wall thickening. CXR: No acute disease CTAP: Abdominal and pelvic LAD suggestive of lymphoproliferative disorder. Hepatosplenomegaly. Diffuse GB wall thickening/edema. CTA chest: No PE. Bilateral axillary, mediastinal and upper abdominal LAD highly suspicious for underlying lymphoma. LLL 6 mm pulmonary nodule. 6-month CT chest follow-up recommended. HIDA scan: No evidence of cystic duct obstruction. Admitting WBC WNL, patient afebrile, cholecystitis ruled out. Surgery evaluated. Will monitor off of antibiotic overnight. Sending LDH/haptoglobin/iron panel/vitamin B12/folate/Tj test/uric acid. We will try to get in touch with oncology Dr. Guillen [[phone]] or outpatient oncology tomorrow for any new recommendation. Patient reports feeling better with regard to RUQ pain. His problem list are: CLL x 7 years, currently likely " active disease": Mention of B- symptoms by patient and his , anemia, extensive LAD per imagings, thrombocytopenia. Cirrhosis: We will consult GI, Hepatitis panel, 6-month follow-up. Hepatosplenomegaly and extensive LAD: Part of the active disease process. Monitor off of antibiotic Upon Exam: GENERAL: Alert and oriented x3. NAD, on RA. HEENT: No pallor, no icterus. Pupils equal, round and reactive to light. Oral mucosa moist. Left submandibular LAD. NECK: No JVD, no neck masses. HEART: S1 and S2 heard. Regular rate and rhythm. No murmur, no gallop. RESPIRATORY SYSTEM: Normal AP diameter. No accessory muscle use. No wheezing, no crackles. ABDOMEN: Soft, bowel sounds present, nontender, no distention. CENTRAL NERVOUS SYSTEM: No facial droop. Speech is clear. Obeys simple commands. Moves extremities. EXTREMITIES: trace ble edema, no erythema seen. Skin: hives noted left shoulder, left wrist. Dermatographism noted. I have seen and examined the patient and have discussed the case with the provider above. I agree with the assessment and plan as stated. Subjective Patient seen and examined in 316-1. Feeling well with minimal abdominal pain following HIDA scan. No fever, chills, nausea or vomiting. Has some right upper quadrant pain with movement but is pain-free at rest. Denies any chest pain, shortness of breath, dysuria, diarrhea or constipation. Still following with oncologist in [place] for history of lymphoma. Interested in having images uploaded into their system. Review of Systems Review of Systems: At least ten systems reviewed and negative except as noted in the HPI. Physical Exam Physical Exam: Gen: WD/WN, NAD, sitting in bedside chair, A&Ox3 HEENT: Normocephalic, atraumatic, conjunctivae moist, sclerae anicteric, mucous membranes moist Lung: Clear to Auscultation bilaterally, no wheezes/rales/rhonchi Heart: Regular rate, regular rhythm, no murmurs, rubs, or gallops Abdomen: Soft, RUQ with mild TTP but no guarding, ND +BS x 4 Extremities: no edema Skin: Warm, no rash Results & Data Results & Data ([facility]) Vital Signs (Past 12 Hours) Vital Signs Temp Pulse Resp BP Pulse Ox O2 Del Method 01/12/22 08:00 Room Air 01/12/22 05:36 37.6 C H 87 18 132/76 93 Room Air 01/11/22 22:15 36.9 C 92 H 18 145/87 H 92 Room Air Laboratory Results Short CBC 01/11/22 01/12/22 Range/Units 13:56 05:17 WBC 10.11 7.09 (4.8-10.8) K/ul Hgb 12.6 L 11.2 L (14.0-18.0) g/dl Hct 38.6 L 34.1 L (40.1-51.0) % Plt Count 85 L 67 L (130-400) K/uL BMP 01/11/22 01/11/22 01/12/22 13:56 15:06 05:17 Sodium 136 134 L Potassium TNP 3.8 3.8 Chloride 104 103 Carbon Dioxide 25 25 BUN 12 12 Creatinine 0.79 0.84 Glucose 86 124 H Calcium 9.4 8.4 L Liver Function 01/11/22 01/11/22 01/12/22 Range/Units 13:56 15:06 05:17 Total Bilirubin 1.2 H 1.4 H (0.2-1.0) mg/dl Direct Bilirubin 0.4 H (0-0.2) mg/dl AST TNP 33 30 ALT 18 13 (7-52) U/L Alkaline Phosphatase 79 73 (34-104) U/L Albumin 3.8 3.4 (3.4-5.0) gm/dl Urine 01/12/22 Range/Units 07:20 Urine Color Dark Yellow Urine Appearance Cloudy A (Clear) Urine pH 5.0 (4.5-7.5) Ur Specific [place] > 1.045 H (1.000-1.030) Urine Protein Trace H (Negative) Urine Glucose (UA) Negative (Negative) Diagnostic Findings Gallbladder Ultrasound 01/11/22 14:33 ABDOMINAL ULTRASOUND, RIGHT UPPER QUADRANT HISTORY: Right upper quadrant abdominal pain.. COMPARISON: None. FINDINGS: Pancreas: The pancreatic tail is obscured by overlying bowel gas. The remaining portions of the pancreas are within normal limits. Liver: Heterogeneous echotexture. No hepatic masses. 20.5 cm in length. Subtle nodular contour to the liver suggestive of early cirrhosis. Gallbladder: The gallbladder is contracted. Diffuse gallbladder wall thickening most pronounced along the hepatic surface measuring 8 mm. There is a small stone identified within the gallbladder. Negative sonographic Moya sign. CBD: 4 mm. Right kidney: No hydronephrosis. Miscellaneous: Multiple mildly enlarged periportal/peripancreatic lymph nodes measuring up to 2.9 x 2.8 x 1.8 cm. IMPRESSION: 1. Enlarged and heterogeneous liver demonstrating a subtle nodular contour consistent with cirrhosis. No hepatic masses. 2. Multiple mildly enlarged periportal/peripancreatic lymph nodes. This is nonspecific but likely due to the patient's underlying cirrhosis. 6 month follow-up recommended to ensure stability. 3. Cholelithiasis. Diffuse gallbladder wall thickening is most likely due to the underlying hepatocellular disease. ACT 112: Negative or not required by law. Electronically signed by: Arnaldo Crouch M.D. 01/11/2022 5:48 PM Chest X-Ray 01/11/22 16:33 XR chest 1V portable CLINICAL HISTORY: abd pain. Evaluate lung bases. COMPARISON STUDY: No previous studies for comparison. TECHNIQUE: 1 view of the chest FINDINGS: Single frontal view of the chest demonstrates the cardiomediastinal silhouette to be within normal limits. There is a decreased inspiratory effort with elevation of the hemidiaphragms and crowding of the bronchovascular markings at the lung bases and centrally. The lungs are clear of alveolar opacities. There is no evidence for pleural effusion. There is no evidence for vascular congestion. There is no acute osseous pathology. IMPRESSION: 1. There is a decreased inspiratory effort with otherwise no acute chest disease. ACT 112: Negative or not required by law. Electronically signed by: Aroldo Gooden M.D. 01/11/2022 4:47 PM Abdomen/Pelvis CT 01/11/22 18:[address] WITH IV CONTRAST CT DOSE: 1963.09 mGy.cm HISTORY: Right upper quadrant abdominal pain. TECHNIQUE: Multiaxial CT images of the abdomen and pelvis were performed following the use of intravenous contrast. A dose lowering technique was utilized adhering to the principles of ALARA. COMPARISON STUDY: Abdominal ultrasound 01/11/2022. FINDINGS: Enlarged subcarinal lymph nodes are again noted. There is a trace right pleural effusion. No pneumoperitoneum. No pneumatosis. No suspicious lytic or blastic osseous lesions. No acute fractures identified. The liver measures 21 cm in length. The spleen measures 22 cm in length. Diffuse gallbladder wall thickening/edema is noted. Subtle nodular contour to the liver which could represent early cirrhosis. The main portal vein is patent. The splenic vein is also patent. No hepatic or splenic masses. There is redemonstration of the periportal/peripancreatic lymphadenopathy. Dominant portacaval lymph node measures 4.2 x 2.4 cm. There is also mild gastrohepatic lymphadenopathy. The pancreas, adrenal glands, and kidneys are unremarkable. No hydronephrosis. Small fat-containing right inguinal hernia. There is bilateral iliac and mild inguinal lymphadenopathy. Dominant left external iliac lymph node measures 3.6 x 1.7 cm. The bladder is unremarkable. The prostate gland is normal in size. Mild calcified plaque within the normal caliber abdominal aorta. Colonic diverticulosis. No evidence for acute diverticulitis. No bowel wall thickening or obstruction. IMPRESSION: 1. Abdominal and pelvic lymphadenopathy as described above. This is highly suspicious for a lymphoproliferative disorder. Oncology consultation recommended. 2. Hepatosplenomegaly. This may be due to the suspected lymphoproliferative disorder. 3. Subtle nodular contour to the liver which may represent early cirrhosis. 4. Diffuse gallbladder wall thickening/edema. This is nonspecific but could be due to the underlying hepatocellular disease. An acute cholecystitis could also have a similar appearance in the appropriate clinical setting. 5. No bowel wall thickening or obstruction. 6. Additional findings as described above. ACT 112: Negative or not required by law. Electronically signed by: Arnaldo Crouch M.D. 01/11/2022 7:34 PM Chest CTA 01/11/22 18:41 CHEST CTA for PULMONARY ARTERIES CT DOSE: HISTORY: right rib/ruq pain TECHNIQUE: Multiaxial CT images of the chest were performed following the intravenous administration of contrast to evaluate the pulmonary arteries. Maximal intensity projection images were also obtained. A dose lowering technique was utilized adhering to the principles of ALARA. COMPARISON STUDY: None. FINDINGS: Normal caliber thoracic aorta with no evidence for dissection. The heart is normal in size. Trace right pleural effusion. No pericardial effusion. Normal esophagus. Suboptimal opacification of the pulmonary arterial tree due to the timing of contrast. However, no definite filling defects within the pulmonary arteries to suggest a pulmonary embolus. No suspicious lytic or blastic osseous lesions. Old, healed right fourth and fifth rib fractures. No acute fractures identified within the chest. The central airways are patent. No pneumothorax. A 6 mm nodular density within the left lower lobe on image 145 appears to represent an impacted bronchus. No focal lung consolidations to suggest pneumonia. There is a 4 mm subpleural nodule within the right upper lobe on image 205. Hepatosplenomegaly is better appreciated on the same day abdomen and pelvis CTA. There is bilateral subpectoral/axillary lymphadenopathy. Dominant right axillary lymph node measures 3.2 cm. There is also mediastinal lymphadenopathy and a few mildly enlarged right anterior diaphragmatic lymph nodes. The bilateral hilar lymph nodes are borderline enlarged. Upper abdominal lymphadenopathy is better appreciated on the same day abdomen and pelvis CT. IMPRESSION: 1. No evidence for pulmonary embolus. 2. Bilateral axillary, mediastinal, and upper abdominal lymphadenopathy. This is highly suspicious for underlying lymphoma. Oncology consultation recommended. 3. Subcentimeter pulmonary nodules as described above with the largest in the left lower lobe measuring 6 mm. [address] follow-up recommended to ensure stability. 4. Trace right pleural effusion. 5. Please refer to the same day abdomen and pelvis CT for further evaluation of the abdominal structures. ACT 112: Negative or not required by law. Electronically signed by: Arnaldo Crouch M.D. 01/11/2022 7:28 PM Hepatobiliary Scan Nuclear Medicine 01/12/22 22:23 NUCLEAR MEDICINE HEPATOBILIARY SCAN WITH EJECTION FRACTION HISTORY: gall bladder disease? RUQ abd pain COMPARISON: Abdomen and pelvis CT 01/11/2022. TECHNIQUE: Immediately following the intravenous administration of 5.3 mCi Tc- 99m Choletec, dynamic anterior abdominal imaging pre/post oral boost was performed. FINDINGS: Uniform hepatic tracer accumulation is shown. Prompt intrahepatic biliary excretion is seen. The gallbladder, common bile duct, and small bowel are all visualized by 55 minutes. This appearance represents the normal sequence of biliary excretion. The gall bladder ejection fraction following administration of Kinevac was 37% (normal >35%). IMPRESSION: 1. No evidence for cystic duct obstruction. 2. Low normal ejection fraction calculated to be 37 %. ACT 112: Negative or not required by law. Electronically signed by: Arnaldo Crouch M.D. 01/12/2022 11:56 AM
--- NOTE | 2022-01-12 11:57 | Nuclear Medicine Report ---
NUCLEAR MEDICINE HEPATOBILIARY SCAN WITH EJECTION FRACTION HISTORY: gall bladder disease? RUQ abd pain COMPARISON: Abdomen and pelvis CT 01/11/2022. TECHNIQUE: Immediately following the intravenous administration of 5.3 mCi Tc-99m Choletec, dynamic a nterior abdominal imaging pre/post oral boost was performed. FINDINGS: Uniform hepatic tracer accumulation is shown. Prompt intrahepatic biliary excretion is seen. The gall bladder, common bile duct, and small bowel are all visualized by 55 minutes. This appearance represen ts the normal sequence of biliary excretion. The gall bladder ejection fraction following administration of Kinevac was 37% (normal >35%). IMPRESSION: 1. No evidence for cystic duct obstruction. 2. Low normal ejection fraction calculated to be 37 %. ACT 112: Negative or not required by law. Electronically signed by: Arnaldo Crouch M.D. 01/12/2022 11:56 AM
[2022-01-12 17:49] LABS: C Reactive Protein 7.06 mg/dl (0-0.5); Uric Acid 4.7 mg/dl (2.6-7.2)
--- NOTE | 2022-01-12 17:58 | Discharge Summary ---
Date of Service January 12, 2022 Admission HPI Per Admitting Provider This is a 61-year-old male with past medical history significant for CLL, as per the patient currently under observation, follows with [facility] oncology at [place]; history of hypertension; hyperlipidemia, who presents with abdominal pain. The patient states he had an attack of right abdominal pain about 2 weeks ago and again 2 days ago, he is again having the similar pain. Since then, his appetite is down, not eating. The pain is radiating to back and he could not take deep breaths because of pain, not able to move much because of pain. No nausea, no vomiting, no diarrhea or constipation. Normal bladder movements. No chest pain. Could not take deep breaths because of pain. No headache, no blurred vision, no earache, no runny nose, no sore throat, no cough. He says his lymph nodes get enlarged whenever he gets infection because of his CLL. Currently, resting comfortably and hemodynamically stable. Admission Exam Per Admitting Provider GENERAL: The patient is obese, not in acute distress. VITAL SIGNS: Temperature 37, pulse 69, respiratory rate 18, blood pressure 128/78, oxygen 98% on room air. HEENT: Pupils equal, round, and reactive to light. Oral mucosa moist. NECK: No JVD seen. Supple. CARDIOVASCULAR: S1 and S2 heard. Regular rate and rhythm. No murmur, no gallop. RESPIRATORY SYSTEM: Normal AP diameter. No accessory muscle use. No wheezing, no crackles. ABDOMEN: Soft, bowel sounds present. Right upper quadrant tenderness present. Mild guarding. No rigidity. No distention. CENTRAL NERVOUS SYSTEM: Cranial nerves II through XII are grossly intact, nonfocal. EXTREMITIES: No edema, no erythema. Principal Diagnosis RUQ, history of lymphoma Discharge Exam Gen: WD/WN, NAD, sitting in bedside chair, A&Ox3 HEENT: Normocephalic, atraumatic, conjunctivae moist, sclerae anicteric, mucous membranes moist Lung: Clear to Auscultation bilaterally, no wheezes/rales/rhonchi Heart: Regular rate, regular rhythm, no murmurs, rubs, or gallops Abdomen: Soft, non-tender, ND +BS x 4 Extremities: no edema Skin: Warm, no rash Discharge Data Allergies Allergy/AdvReac Type Severity Reaction Status Date / Time No Known Allergies Allergy Unverified 01/11/22 20:50 Consultations 01/11/22 20:35 ED Decision to Admit Stat 01/11/22 22:23 Consult General Surgery Routine 01/12/22 17:22 Consult Gastroenterology Routine Ordered Studies 01/11/22 14:33 US gallbladder Stat 01/11/22 18:41 CT abd pelvis IV con only Stat CT angio chest PE protocol Stat Hospital Course (1) CLL (chronic lymphocytic leukemia): (2) Abdominal pain: Plan This is a 61-year-old male with PMH of for CLL, as per the patient currently under observation following with [facility] oncology at [place], HTN, HLD who presented intermittent right upper quadrant pain with event last week and then again 2 days ago with associated decreased appetite. General surgery was consulted during admission and HIDA scan was obtained, without evidence for cystic duct obstruction and low normal ejection fraction. No indication for cholecystectomy at this time. Empiric antibiotics were discontinued at this time. Patient remained afebrile throughout admission, vital signs stable and no leukocytosis. Patient mentioned recent low grade fevers and night sweats and imaging on CTA chest and CT abd/pelvis with extensive lymphadenopathy that is highly suspicious for a lymphoproliferative disorder. Has been under surveillance for the past 6 years since diagnosis of lymphoma and [facility] Unable to reach oncologist during the day yesterday to discuss findings but he returned call in the evening. Concerned for more active disease process and will see in clinic soon. Patient offered oncologic care while admitted but preferred to continue following with established provider in out-patient setting. ESR and CRP elevated, iron level low. Direct Fidencoi test negative. Folate and B12 within normal range. Haptoglobin pending. Images and lab work to be forwarded to oncology office for further management. Total Time Total Time Spent Total Time Spent (In Minutes): 50 Discharge Plan Discharge Items Patient Disposition: Home - Self-Care Reason For Visit: ABDOMINAL PAIN Discharge Diagnosis: CLL RUQ pain Activity: Resume your previous activity Non-emergency contact: Primary Care Provider Call non-emergency contact if: you have any medication questions, your symptoms worsen, your pain is not controlled and your temperature is above 101 Follow-up/Referrals: Luis Daniel Casey [Primary Care Provider] - Diet: Regular Addtl Attending Provider Instructions: Follow-up with your primary care physician within a week time. Follow-up with your oncology doctor as soon as possible. Get your blood work CBC and CMP done in a week time and have the results forwarded to your primary care physician. As discussed at the bedside, he can use Tylenol or ibuprofen for pain control. If needed stronger pain medication, you will need further evaluation by your PCP for new pain management prescription. Take your medications as prior. Pending Studies at Discharge: Yes (various blood works) Stand-Alone Forms: My [facility], Smoking Cessation Medications and DC Order Prescriptions: Continued metoprolol succinate 25 mg Tablet Extended Release 24 Hr 25 mg PO DAILY amlodipine 5 mg Tablet 5 mg PO DAILY rosuvastatin 40 mg Tablet 40 mg PO DAILY hydrochlorothiazide 25 mg Tablet 25 mg PO DAILY Discharge Orders: Discharge Order (Routine); Ordered 01/12/22 Ordered By: Adán Beatty Admission Data Admit Date/Time: 01/11/22 21:35 Attending Provider: Adán Beatty Admit Provider: Vinnie Benavides Primary Care Provider: Luis Daniel Casey Other Providers: Vinnie Benavides ; Juni Camilo ; Reji Holland ; Kalpana Jones ; Poppy Lebron ; Bentley Stafford ; Hugo Ashby ; Anna Stacy ; Elle Bethea ; Palomo Nogueira Jr ; Genevieve Covington ; Nathan Wayne ; Cheri Ricks ; Gladys Eid ; Buddy Gomez Other Interventions: Discharge Summary Assessment (RN) Last Done: 01/12/22 16:21 Supervising Physician Co-Signing Physician Notes I have seen and examined the patient and have discussed the case with the provider above. I agree with the assessment and plan as stated.
--- NOTE | 2022-01-12 18:02 | Communication Note ---
Date of Service: January 12, 2022 Pt appears to be having B symptoms w/ hematologic changes of CLL, likely in "active disease". See today's note. Decision was finally reached to observe him overnight off of antibiotic but later on patient/family insisted on being discharged. Pt made aware he needs oncology evaluation as soon as possible. Multiple attempts made by Gladys PHILLIPS to contact Dr. Guillen (pt's oncologist) ([phone]] but in [facility], family wanted discussion to be held only with the patient's own oncologist. We had sent other hematologic tests, the results of which are pending.
[2022-01-12 18:03] LABS: Folate (Folic Acid) > 22.30 ng/ml (>5.38)
[2022-01-12 18:04] LABS: Vitamin B12 615 pg/ml (180-914)
[2022-01-12 18:09] LABS: Ferritin 132.5 ng/ml (8-388)
== END 2022-01-12 18:02 | disposition home or self-care (01) ==
LOC: ED 13:04 → 3E 21:35 → INTOOBSV 21:35 → 3E 22:08